=== PATIENT | female | born 1995 | race Caucasian/White ===

== ENCOUNTER 2016-07-09 10:45 | Emergency (ER) | payer OTHER, MEDICAID ==
[~2016-07-09] VITALS: Ht 170.2 cm; Wt 89.0 kg
[~2016-07-09 10:45] MED LIST: LORTA5 PO; ZOFR4TAB3 SL
[2016-07-09 10:52] VITALS: BP 142/96; PULSE 126; RESP 20; TEMP 98; O2SAT 98
[2016-07-09 13:20] VITALS: BP 151/92; PULSE 73; RESP 18; O2SAT 97
[2016-07-09] MEDS ORDERED: KETOROLAC TROMETHAMINE 30 MG/ML (IVP) VIAL IV PUSH ONE (14:00)
[2016-07-09] MEDS ORDERED: CYCLOBENZAPRINE HCL 10 MG TAB PO ONE (14:00)
[2016-07-09] MEDS ORDERED: KETOROLAC TROMETHAMINE 60 MG/2 ML (IM) VIAL IM ONE (14:15)
[2016-07-09 14:28] VITALS: BP 132/74; PULSE 83; RESP 16; O2SAT 99
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
[2016-07-09 15:25] VITALS: BP 155/83; PULSE 76; RESP 22; O2SAT 100
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
[2016-07-09] MEDS ORDERED: oxyCODONE/ACETAMINOPHEN 5 MG/325 MG TAB PO ONE (15:45)
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
[2016-07-09] MEDS ORDERED: CYCL1TAB29 PO (17:45)
[2016-07-09] MEDS ORDERED: IBUP-232 PO (17:45)
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
[2016-07-09 17:57] VITALS: BP 119/76
== END 2016-07-09 17:58 | disposition home or self-care (01) ==
LOC: NEPB 10:45 → NEPA 17:58
DX: R51 Headache (principal); M25.512 Pain in left shoulder; M54.2 Cervicalgia; M25.562 Pain in left knee; V89.2XXA Person injured in unspecified motor-vehicle accident, traffic, initial encounter
CPT/HCPCS: 70450; 71020; 72072; 72110; 72125; 73030; 73080; 73564; 84703; 96372; 99284; J1885; L0150

== ENCOUNTER 2017-06-19 20:41 | Emergency (ER) | payer OTHER ==
[~2017-06-19 20:41] MED LIST changes: +CYCL10TA PO; +IBUP-232 PO; -LORTA5 PO; -ZOFR4TAB3 SL
[2017-06-19 20:42] VITALS: BP 125/72; PULSE 111; RESP 16; TEMP 99.8; O2SAT 98
[2017-06-19] MEDS ORDERED: IBUPROFEN 800 MG TAB PO ONE (21:00)
--- NOTE | 2017-06-19 22:02 | PD ---
HPI Chief Complaint: Cold / Flu Symptoms Time Seen by Provider: 21:49 Travel History International Travel<30 days: No Contact w/Intl Traveler<30days: No Traveled to known affect area: No History of Present Illness HPI 22-year-old female presents to the emergency department for evaluation of sore throat, body aches, subjective fever and chills. This began yesterday. Symptoms are moderate in severity and constant. Patient has also had some nausea and about a diarrhea. Denies any abdominal pain. Has had chest pain or tightness. No difficulty breathing. Patient asked other symptoms to report. [facility] Past Medical History Medical History: Denies Significant Hx Immunizations Current: Yes ?: Not LMP: now Social History Alcohol Use: No Tobacco Use: No Substance Use: No Allergies-Medications (Allergen,Severity, Reaction): Coded Allergies: morphine (Unverified Allergy, Severe, Rash, 01/01/17) ipratropium (Unverified Allergy, Unknown, 01/01/17) milk (Unverified Allergy, Unknown, 01/01/17) Uncoded Allergies: FISH (Allergy, Unknown, 02/23/14) Reported Meds & Prescriptions Reported Meds & Active Scripts Active Amoxicillin 875 Mg Tab 875 Mg PO BID 10 Days Flexeril (Cyclobenzaprine HCl) 10 Mg Tab 10 Mg PO TID Ibuprofen 600 Mg Tab 600 Mg PO Q6H PRN Review of Systems Except as stated in HPI: all other systems reviewed are Neg Physical Exam Narrative GENERAL: Well-nourished female patient in no acute distress SKIN: Focused skin assessment warm/dry. HEAD: Atraumatic. Normocephalic. EYES: Pupils equal and round. No scleral icterus. No injection or drainage. ENT: No nasal bleeding or discharge. Mucous membranes pink and moist. Pharynx mildly edematous with significant erythema. Few scattered exudate. NECK: Trachea midline. No JVD. Anterior cervical lymphadenopathy. CARDIOVASCULAR: Elevated rate and rhythm. No murmur appreciated. RESPIRATORY: No accessory muscle use. Clear to auscultation. Breath sounds equal bilaterally. GASTROINTESTINAL: Abdomen soft, non-tender, nondistended. Hepatic and splenic margins not palpable. MUSCULOSKELETAL: No obvious deformities. No clubbing. No cyanosis. No edema. NEUROLOGICAL: Awake and alert. No obvious cranial nerve deficits. Motor grossly within normal limits. Normal speech. PSYCHIATRIC: Appropriate mood and affect; insight and judgment normal. Data Data Last Documented VS Vital Signs Date Time Temp Pulse Resp B/P (MAP) Pulse Ox O2 Delivery O2 Flow Rate FiO2 06/19/17 22:50 99.0 06/19/17 20:42 111 16 98 Orders Orders Group A Rapid Strep Screen (06/19/17 20:52) Influenzae A/B Antigen (06/19/17 20:52) Ibuprofen (Motrin) (06/19/17 21:00) Dexamethasone Inj (Decadron Inj) (06/19/17 22:15) Ed Discharge Order (06/19/17 22:11) MDM Medical Decision Making Medical Screen Exam Complete: Yes Emergency Medical Condition: Yes Medical Record Reviewed: Yes Differential Diagnosis Pharyngitis viral versus strep versus tonsillitis versus common cold versus allergies Narrative Course 22-year-old female presents emergency department for evaluation of flulike symptoms. Influenza screen is negative. Rapid strep screen is positive. Patient be started on amoxicillin. She is given IM Decadron here to help with inflammation and pain. She is counseled on care and agrees to return immediately with any acute worsening symptoms. Diagnosis Primary Impression: Strep pharyngitis Referrals: Primary Care Physician Patient Instructions: General Instructions, Strep Throat (ED) Departure Forms: Tests/Procedures, Work Release Enter return to work date: Jun 21, 2017 Additional Instructions: Warm salt water gargles may help to alleviate symptoms Follow-up with your primary care provider Tylenol or ibuprofen as directed on package as needed for fever and/or pain Return immediately with any acute worsening symptoms Med/Other Pt SpecificInfo: Prescription(s) given Scripts Amoxicillin (Amoxicillin) 875 Mg Tab 875 MG PO BID for Infection for 10 Days, #20 TAB 0 Refills Prov: Odessa Fuentes 06/19/17 Disposition: 01 DISCHARGE HOME Condition: Stable Odessa Fuentes Jun 19, 2017 22:02
[2017-06-19] MEDS ORDERED: AMOX875T PO (22:14)
[2017-06-19] MEDS ORDERED: DEXAMETHASONE SOD PHOS 4 MG/ML VIAL IM ONE (22:15)
[2017-06-19 22:50] VITALS: TEMP 99
== END 2017-06-19 22:58 | disposition home or self-care (01) ==
LOC: NEPD 20:41
DX: J02.0 Streptococcal pharyngitis (principal)
CPT/HCPCS: 87804; 87880; 96372; 99284; J1100

== ENCOUNTER 2017-08-16 16:04 | Emergency (ER) | payer SELFPAY ==
[~2017-08-16] VITALS: Ht 170.2 cm; Wt 75.0 kg
[~2017-08-16 16:04] MED LIST changes: +AMOX875T PO
[2017-08-16 16:14] VITALS: BP 160/73; PULSE 98; RESP 18; O2SAT 99
[2017-08-16] MEDS ORDERED: SODIUM CHLOR 0.9% 1000 ML INJ 1,000 ML IV SCH (17:16)
--- NOTE | 2017-08-16 17:29 | PD ---
HPI Chief Complaint: GI Complaint Time Seen by Provider: 17:08 Travel History International Travel<30 days: No Contact w/Intl Traveler<30days: No Traveled to known affect area: No History of Present Illness HPI Patient is a 22-year-old female who presents to emergency room with complaints of abdominal pain. Patient reports that she has been having intermittent abdominal pain which has been ongoing for the past month. Patient reports that for the past 3 days, she has been having persistent epigastric to right upper quadrant abdominal pain. Patient reports that pain has been mild to moderate in nature. Patient reports that pain has been associated with nausea and vomiting as well as diarrhea. Patient denies any sick contacts, denies any recent travels or trips. Patient reports subjective fevers today which prompted her to go to the emergency room. Patient reports that for the past month, pain would come on by itself and would be relieved by eating a meal, reports that for the past 3 days, nothing makes pain better or worse. Denies hx of surgeries in the past. Denies dysuria, urinary urgency or frequency. Denies flank pain. Denies vaginal discharge. PFSH Past Medical History Immunizations Current: Yes ?: Not LMP: 08/02/17 Past Surgical History Surgical History: No Previous Surgery Family History Family History: Negative Social History Alcohol Use: No Tobacco Use: No Substance Use: No Allergies-Medications (Allergen,Severity, Reaction): Coded Allergies: morphine (Unverified Allergy, Severe, Rash, 08/16/17) ipratropium (Unverified Allergy, Unknown, 08/16/17) milk (Unverified Allergy, Unknown, 08/16/17) Uncoded Allergies: FISH (Allergy, Unknown, 02/23/14) Reported Meds & Prescriptions Reported Meds & Active Scripts Active Zofran (Ondansetron HCl) 4 Mg Tab 4 Mg PO Q6HR PRN Pepcid (Famotidine) 20 Mg Tab 20 Mg PO BID Carafate Liq (Sucralfate) 1 Gm/10 Ml Susp 1 Gm PO TID on empty stomach Review of Systems General / Constitutional: No: Fever, Chills Eyes: No: Visual changes HENT: No: Headaches Cardiovascular: No: Chest Pain or Discomfort Respiratory: No: Shortness of Breath Gastrointestinal: Positive: Nausea, Vomiting, Diarrhea, Abdominal Pain, Loss of Appetite, No: Constipation Genitourinary: No: Urgency, Frequency, Dysuria Musculoskeletal: No: Pain Skin: No Rash Neurologic: No: Weakness Psychiatric: No: Depression Endocrine: No: Polydipsia Hematologic/Lymphatic: No: Easy Bruising Physical Exam Narrative GENERAL: Mild distress SKIN: Focused skin assessment warm/dry. HEAD: Atraumatic. Normocephalic. EYES: Pupils equal and round. No scleral icterus. No injection or drainage. ENT: No nasal bleeding or discharge. Mucous membranes pink and moist. NECK: Trachea midline. No JVD. CARDIOVASCULAR: Regular rate and rhythm. No murmur appreciated. RESPIRATORY: No accessory muscle use. Clear to auscultation. Breath sounds equal bilaterally. GASTROINTESTINAL: Abdomen soft, mildly tender to epigastrium with no rebound or guarding, nondistended. Hepatic and splenic margins not palpable. Patient with right sided CVA tenderness MUSCULOSKELETAL: No obvious deformities. No clubbing. No cyanosis. No edema. NEUROLOGICAL: Awake and alert. No obvious cranial nerve deficits. Motor grossly within normal limits. Normal speech. PSYCHIATRIC: Appropriate mood and affect; insight and judgment normal. Data Data Last Documented VS Vital Signs Date Time Temp Pulse Resp B/P (MAP) Pulse Ox O2 Delivery O2 Flow Rate FiO2 08/16/17 18:38 98.4 08/16/17 16:14 98 18 160/73 (102) 99 Orders Orders Complete Blood Count With Diff (08/16/17 17:16) Comprehensive Metabolic Panel (08/16/17 17:16) Lipase (08/16/17 17:16) Urinalysis - C+S If Indicated (08/16/17 17:16) Ct Abd/Pel W/O Iv Contrast (08/16/17 17:16) Iv Access Insert/Monitor (08/16/17 17:16) Ecg Monitoring (08/16/17 17:16) Oximetry (08/16/17 17:16) NPO (08/16/17 17:16) Ondansetron Inj (Zofran Inj) (08/16/17 17:30) Sodium Chlor 0.9% 1000 Ml Inj (Ns 1000 M (08/16/17 17:16) Sodium Chloride 0.9% Flush (Ns Flush) (08/16/17 17:30) Famotidine Inj (Pepcid Inj) (08/16/17 17:30) Ed Urine Pregnancytest Poc (08/16/17 17:16) Al-Mag Hy-Si 40-40-4 Mg/Ml Liq (Mag-Al P (08/16/17 17:30) Lidocaine 2% Viscous (Xylocaine 2% Visco (08/16/17 17:30) Sucralfate Liq (Carafate Liq) (08/16/17 20:45) Ketorolac Inj (Toradol Inj) (08/16/17 20:45) Ed Discharge Order (08/16/17 21:39) Labs Laboratory Tests Test 08/16/17 17:30 08/16/17 18:05 White Blood Count 9.7 TH/MM3 Red Blood Count 4.47 MIL/MM3 Hemoglobin 13.4 GM/DL Hematocrit 39.9 % Mean Corpuscular Volume 89.2 FL Mean Corpuscular Hemoglobin 30.0 PG Mean Corpuscular Hemoglobin Concent 33.6 % Red Cell Distribution Width 14.2 % Platelet Count 223 TH/MM3 Mean Platelet Volume 9.1 FL Neutrophils (%) (Auto) 76.3 % Lymphocytes (%) (Auto) 15.9 % Monocytes (%) (Auto) 6.9 % Eosinophils (%) (Auto) 0.6 % Basophils (%) (Auto) 0.3 % Neutrophils # (Auto) 7.4 TH/MM3 Lymphocytes # (Auto) 1.5 TH/MM3 Monocytes # (Auto) 0.7 TH/MM3 Eosinophils # (Auto) 0.1 TH/MM3 Basophils # (Auto) 0.0 TH/MM3 CBC Comment DIFF FINAL Differential Comment Blood Urea Nitrogen 8 MG/DL Creatinine 0.90 MG/DL Random Glucose 89 MG/DL Total Protein 7.4 GM/DL Albumin 3.9 GM/DL Calcium Level 8.9 MG/DL Alkaline Phosphatase 57 U/L Aspartate Amino Transf (AST/SGOT) 30 U/L Alanine Aminotransferase (ALT/SGPT) 64 U/L Total Bilirubin 0.3 MG/DL Sodium Level 141 MEQ/L Potassium Level 4.2 MEQ/L Chloride Level 110 MEQ/L Carbon Dioxide Level 27.1 MEQ/L Anion Gap 4 MEQ/L Estimat Glomerular Filtration Rate 78 ML/MIN Lipase 122 U/L Urine Color LIGHT-YELLOW Urine Turbidity CLEAR Urine pH 6.0 Urine Specific [place] 1.009 Urine Protein NEG mg/dL Urine Glucose (UA) NEG mg/dL Urine Ketones NEG mg/dL Urine Occult Blood NEG Urine Nitrite NEG Urine Bilirubin NEG Urine Urobilinogen LESS THAN 2.0 MG/DL Urine Leukocyte Esterase NEG Urine RBC 1 /hpf Urine WBC LESS THAN 1 /hpf Urine Squamous Epithelial Cells 4 /hpf Microscopic Urinalysis Comment CULT NOT INDICATED MDM Medical Decision Making Medical Screen Exam Complete: Yes Emergency Medical Condition: Yes Medical Record Reviewed: Yes Interpretation(s) Vital Signs Date Time Temp Pulse Resp B/P (MAP) Pulse Ox O2 Delivery O2 Flow Rate FiO2 08/16/17 16:14 98 18 160/73 (102) 99 Differential Diagnosis Gastritis, gastroenteritis, gastric ulcer, GERD, cholecystitis, viral syndrome, UTI, kidney stones Narrative Course Patient is a 22-year-old female who presents to emergency room with complaints of abdominal pain which has been ongoing for the past month. Initially symptoms were intermittent in nature, patient reports her symptoms have been persistent for the past 3 days. Patient reports increased pain to her epigastrium, reports nausea, vomiting and diarrhea with symptoms. Patient reports that symptoms have been persistent for the past 3 days with associated subjective fevers today. On exam, patient is tender to epigastrium, discussed her plan to obtain lab work , will administer IV fluids as well as antiemetics and GI cocktail. CT of the abdomen pelvis without contrast was ordered as she does have associated right- sided flank pain. Vital Signs Date Time Temp Pulse Resp B/P (MAP) Pulse Ox O2 Delivery O2 Flow Rate FiO2 08/16/17 18:38 98.4 08/16/17 16:14 98 18 160/73 (102) 99 CBC & BMP Diagram 08/16/17 17:30 Total Protein 7.4, Albumin 3.9, Calcium Level 8.9, Alkaline Phosphatase 57, Aspartate Amino Transf (AST/SGOT) 30, Alanine Aminotransferase (ALT/SGPT) 64 H, Total Bilirubin 0.3 Last Impressions Abdomen/Pelvis CT 08/16/17 [id number] Signed Impressions: Service Date/Time: Wednesday, August 16, 2017 19:15 - CONCLUSION: No acute disease. Vishal Canas MD Patient re-evaluated, patient feeling much better at this time. All labs and studies reviewed with patient. She will return to ER as needed. Signs and symptoms of when to return to the ER was reviewed with patient Diagnosis Primary Impression: Abdominal pain Qualified Codes: R10.13 - Epigastric pain Additional Impressions: GERD (gastroesophageal reflux disease) Qualified Codes: K21.9 - Gastro-esophageal reflux disease without esophagitis Gastroenteritis Patient Instructions: General Instructions, Narcotic given in the ED Additional Instructions: Please provide patient with a copy of their lab work and studies at discharge* * Please follow up with your primary care doctor in 2-3 days Return to the ER if symptoms worsen or progress Return to the ER as needed Please follow-up with a sales representative jewelry Med/Other Pt SpecificInfo: Prescription(s) given Scripts Ondansetron (Zofran) 4 Mg Tab 4 MG PO Q6HR Y for NAUSEA OR VOMITING, #12 TAB 0 Refills Prov: Kira Davalos DO 08/16/17 Famotidine (Pepcid) 20 Mg Tab 20 MG PO BID, #60 TAB 0 Refills Prov: Kira Davalos DO 08/16/17 Sucralfate Liq (Carafate Liq) 1 Gm/10 Ml Susp 1 GM PO TID for Duodenal ulcer, #900 ML 0 Refills on empty stomach Prov: Kira Davalos DO 08/16/17 Disposition: 01 DISCHARGE HOME Condition: Stable Kira Davalos DO Aug 16, 2017 17:29
[2017-08-16] MEDS ORDERED: ALUMINUM/MAGNESIUM/SIMETH 30 ML CUP PO ONE (17:30)
[2017-08-16] MEDS ORDERED: ONDANSETRON HCL 4 MG/2 ML VIAL IVP ONE (17:30)
[2017-08-16] MEDS ORDERED: SODIUM CHLORIDE 0.9% FLUSH 10 ML FLUSH IV FLUSH PRN (17:30)
[2017-08-16] MEDS ORDERED: LIDOCAINE VISCOUS 2% SOLN 15 ML UDC PO ONE (17:30)
[2017-08-16] MEDS ORDERED: FAMOTIDINE 20 MG/2 ML VIAL IV PUSH ONE (17:30)
[2017-08-16 17:50] LABS: AUTOMATED NEUTROPHIL # 7.4 TH/MM3 (1.8-7.7); BASOPHIL % 0.3 % (0.0-2.0); EOSINOPHIL # 0.1 TH/MM3 (0-0.4); EOSINOPHIL % 0.6 % (0.0-4.0); HEMATOCRIT 39.9 % (35.0-46.0); HEMOGLOBIN 13.4 GM/DL (11.6-15.3); LYMPH % 15.9 % (9.0-44.0); LYMPHOCYTE # 1.5 TH/MM3 (1.0-4.8); MEAN CELL VOLUME 89.2 FL (80.0-100.0); MEAN CORPUSCULAR HGB CONC 33.6 % (32.0-36.0); MEAN PLATELET VOLUME 9.1 FL (7.0-11.0); MONO % 6.9 % (0.0-8.0); MONOCYTE # 0.7 TH/MM3 (0-0.9); NEUT % 76.3 % (16.0-70.0); PLATELET COUNT 223 TH/MM3 (150-450); RED BLOOD COUNT 4.47 MIL/MM3 (4.00-5.30); RED CELL DISTRIBUTION WIDTH 14.2 % (11.6-17.2); WHITE BLOOD COUNT 9.7 TH/MM3 (4.0-11.0)
[2017-08-16 18:02] LABS: ALBUMIN 3.9 GM/DL (3.4-5.0); ALT (GPT) 64 U/L (10-53); AST (GOT) 30 U/L (15-37); BICARBONATE 27.1 MEQ/L (21.0-32.0); BLOOD UREA NITROGEN 8 MG/DL (7-18); CALCIUM 8.9 MG/DL (8.5-10.1); CHLORIDE 110 MEQ/L (98-107); GLOMERULAR FILTRATION RATE 78 ML/MIN (>89); GLUCOSE,RANDOM 89 MG/DL (74-106); SODIUM (NA) 141 MEQ/L (136-145)
[2017-08-16 18:04] LABS: ALKALINE PHOSPHATASE 57 U/L (45-117); TOTAL BILIRUBIN ADULT 0.3 MG/DL (0.2-1.0); TOTAL PROTEIN 7.4 GM/DL (6.4-8.2)
[2017-08-16 18:38] VITALS: TEMP 98.4
[2017-08-16 18:50] LABS: BILIRUBIN, URINE NEG (NEG); BLOOD, URINE NEG (NEG); GLUCOSE,URINE NEG (NEG); KETONE, URINE NEG (NEG); NITRITE,URINE NEG (NEG); SQUAMOUS EPITHELIAL CELL URINE 4 /hpf (0-5); URINE COLOR LIGHT-YELLOW (YELLW/STRAW); URINE LEUKOCYTE ESTERASE NEG (NEG)
--- NOTE | 2017-08-16 20:15 | RADRPT ---
EXAM DATE/TIME: 08/16/2017 19:15 [facility] COMPARISON: No previous studies available for comparison. INDICATIONS : Mid abdominal pain with nausea and vomiting. ORAL CONTRAST: No oral contrast ingested. RADIATION DOSE: 11.87 CTDIvol (mGy) MEDICAL HISTORY : None SURGICAL HISTORY : None. ENCOUNTER: Initial ACUITY: 1 day PAIN SCALE: 5/10 LOCATION: middle abdomen. TECHNIQUE: Volumetric scanning of the abdomen and pelvis was performed. Using automated exposure control and ad justment of the mA and/or kV according to patient size, radiation dose was kept as low as reasonably achievable to obtain optimal diagnostic quality images. DICOM format image data is available electro nically for review and comparison. FINDINGS: LOWER LUNGS: The visualized lower lungs are clear. LIVER: Homogeneous density without lesion. There is no dilation of the biliary tree. No calcified gallston es. SPLEEN: Normal size without lesion. PANCREAS: Within normal limits. KIDNEYS: Normal in size and shape. There is no mass, stone, or hydronephrosis. ADRENAL GLANDS: Within normal limits. VASCULAR: There is no aortic aneurysm. BOWEL/MESENTERY: The stomach, small bowel, and colon demonstrate no acute abnormality. There is no free intraperitone al air or fluid. The appendix is normal. ABDOMINAL WALL: Within normal limits. RETROPERITONEUM: There is no lymphadenopathy. BLADDER: No wall thickening or mass. Small calcifications are seen in the pelvis likely related to phleboliths . REPRODUCTIVE: Within normal limits. INGUINAL: There is no lymphadenopathy or hernia. MUSCULOSKELETAL: Within normal limits for patient age. There are normal transitional changes of the left L5-S1 level. CONCLUSION: No acute disease. Vishal Canas MD on August 16, 2017 at 20:11 Board Certified Radiologist. This report was verified electronically.
[2017-08-16] MEDS ORDERED: CARA1SUS3 PO (20:44)
[2017-08-16] MEDS ORDERED: FAMO1TAB37 PO (20:44)
[2017-08-16] MEDS ORDERED: ZOFR4TAB PO (20:44)
[2017-08-16] MEDS ORDERED: SUCRALFATE 1 GM/10 ML CUP PO ONE (20:45)
[2017-08-16] MEDS ORDERED: KETOROLAC TROMETHAMINE 30 MG/ML (IVP) VIAL IV PUSH ONE (20:45)
== END 2017-08-16 21:40 | disposition home or self-care (01) ==
LOC: NEPD 16:04
DX: K21.9 Gastro-esophageal reflux disease without esophagitis (principal); K52.9 Noninfective gastroenteritis and colitis, unspecified
CPT/HCPCS: 74176; 80053; 81001; 83690; 84703; 85025; 96361; 96374; 96375; 99284; J1885; J2405; J7030

== ENCOUNTER 2017-10-10 09:11 | Emergency (ER) | payer SELFPAY ==
[~2017-10-10] VITALS: Ht 170.2 cm; Wt 75.0 kg
[~2017-10-10 09:11] MED LIST changes: -AMOX875T PO; +CARA1SUS3 PO; -CYCL10TA PO; +FAMO1TAB37 PO; -IBUP-232 PO; +ZOFR4TAB PO
[2017-10-10 09:16] VITALS: BP 129/69; PULSE 74; RESP 16; TEMP 98.6; O2SAT 98
[2017-10-10] MEDS ORDERED: SODIUM CHLOR 0.9% 1000 ML INJ 1,000 ML IV SCH (10:16)
[2017-10-10] MEDS ORDERED: ONDANSETRON ODT 4 MG TAB PO ONE (10:30)
[2017-10-10] MEDS ORDERED: SODIUM CHLORIDE 0.9% FLUSH 10 ML FLUSH IV FLUSH PRN (10:30)
[2017-10-10 10:35] LABS: BILIRUBIN, URINE NEG (NEG); BLOOD, URINE LARGE (NEG); GLUCOSE,URINE NEG (NEG); KETONE, URINE NEG (NEG); NITRITE,URINE NEG (NEG); PH, URINE 5.5 (5.0-8.5); URINE COLOR YELLOW (YELLW/STRAW); URINE LEUKOCYTE ESTERASE NEG (NEG)
[2017-10-10 10:36] LABS: AUTOMATED NEUTROPHIL # 5.1 TH/MM3 (1.8-7.7); BASOPHIL % 0.2 % (0.0-2.0); EOSINOPHIL % 0.4 % (0.0-4.0); HEMATOCRIT 40.9 % (35.0-46.0); HEMOGLOBIN 13.8 GM/DL (11.6-15.3); LYMPH % 13.5 % (9.0-44.0); LYMPHOCYTE # 0.9 TH/MM3 (1.0-4.8); MEAN CELL VOLUME 87.3 FL (80.0-100.0); MEAN CORPUSCULAR HEMOGLOBIN 29.5 PG (27.0-34.0); MEAN CORPUSCULAR HGB CONC 33.8 % (32.0-36.0); MEAN PLATELET VOLUME 9.8 FL (7.0-11.0); MONO % 6.6 % (0.0-8.0); MONOCYTE # 0.4 TH/MM3 (0-0.9); NEUT % 79.3 % (16.0-70.0); PLATELET COUNT 200 TH/MM3 (150-450); RED BLOOD COUNT 4.68 MIL/MM3 (4.00-5.30); RED CELL DISTRIBUTION WIDTH 12.8 % (11.6-17.2); WHITE BLOOD COUNT 6.4 TH/MM3 (4.0-11.0)
[2017-10-10 10:39] LABS: RBC, URINE 15-19 /hpf (0-3); WBC, URINE 0-2 /hpf (0-5)
[2017-10-10 10:40] LABS: BACTERIA, URINE OCC /hpf; SQUAMOUS EPITHELIAL CELL URINE > 8 /hpf (0-5)
[2017-10-10 10:44] VITALS: BP 130/74; PULSE 68; RESP 18; O2SAT 100
[2017-10-10 10:46] LABS: CHLORIDE 106 MEQ/L (98-107); SODIUM (NA) 138 MEQ/L (136-145)
[2017-10-10 10:49] LABS: ALBUMIN 4.1 GM/DL (3.4-5.0); BICARBONATE 27.1 MEQ/L (21.0-32.0); BLOOD UREA NITROGEN 7 MG/DL (7-18); CALCIUM 9.1 MG/DL (8.5-10.1); GLUCOSE,RANDOM 89 MG/DL (74-106)
[2017-10-10 10:52] LABS: ALT (GPT) 14 U/L (10-53)
[2017-10-10 10:53] LABS: AST (GOT) 12 U/L (15-37); CREATININE 0.84 MG/DL (0.50-1.00); GLOMERULAR FILTRATION RATE 85 ML/MIN (>89)
[2017-10-10 10:54] LABS: TOTAL BILIRUBIN ADULT 0.4 MG/DL (0.2-1.0); TOTAL PROTEIN 7.8 GM/DL (6.4-8.2)
[2017-10-10 10:55] LABS: ALKALINE PHOSPHATASE 49 U/L (45-117)
[2017-10-10 11:19] VITALS: BP 122/69; PULSE 76; RESP 18; O2SAT 98
--- NOTE | 2017-10-10 11:33 | RADRPT ---
EXAM DATE: 10/10/2017 11:31 AM EDT AGE/SEX: 22 years / Female INDICATIONS: Cough and sore throat. CLINICAL DATA: This is the patient's initial encounter. Patient reports that signs and symptoms have been present for 2 days and indicates a pain score of 0/10. MEDICAL/SURGICAL HISTORY: None. None. COMPARISON: [facility] [place], CHEST PA & LAT, 07/09/2016. . FINDINGS: PA and lateral views of the chest demonstrate the lungs to be symmetrically aerated without evidence of mass, infiltrate or effusion. The cardiomediastinal contours are unremarkable. Osseous structures are intact. CONCLUSION: 1. No acute cardiopulmonary disease. Electronically signed by: Imer Knight MD 10/10/2017 11:32 AM EDT
[2017-10-10] MEDS ORDERED: KETOROLAC TROMETHAMINE 30 MG/ML (IVP) VIAL IV PUSH ONE (12:00)
[2017-10-10 12:05] VITALS: BP 139/76; PULSE 75; RESP 18; O2SAT 100
[2017-10-10] MEDS ORDERED: ZOFR4TAB3 SL (12:23)
--- NOTE | 2017-10-10 12:23 | PD ---
HPI Chief Complaint: GI Complaint Time Seen by Provider: 09:50 Travel History International Travel<30 days: No Contact w/Intl Traveler<30days: No Traveled to known affect area: No History of Present Illness HPI Patient is a 22 year old female who comes in complaining of nausea, vomiting, fever and throat pain. She says this started Saturday with a headache and the following day she started to have chills with the sore throat, vomiting, and diarrhea. She says she has had issues with vomiting in the past, but has not been able to follow up with gastroenterology. She says she had a fever of 101 last night. She took some Tylenol and she says this helps with the chills. She denies abdominal pain. She denies any sick contacts, but says she has been in and out of the hospital with her grandmother in the past few months. Severity is mild to moderate. PFSH Past Medical History Immunizations Current: Yes Influenza Vaccination: No ?: Not LMP: NOW Social History Alcohol Use: No Tobacco Use: Yes (2-3 CIGS PER DAY) Substance Use: No Allergies-Medications (Allergen,Severity, Reaction): Coded Allergies: morphine (Unverified Allergy, Severe, Rash, 08/16/17) ipratropium (Unverified Allergy, Unknown, 08/16/17) milk (Unverified Allergy, Unknown, 08/16/17) Uncoded Allergies: FISH (Allergy, Unknown, 02/23/14) Reported Meds & Prescriptions Reported Meds & Active Scripts Active Review of Systems Except as stated in HPI: all other systems reviewed are Neg General / Constitutional: No: Fever HENT: Positive: Sore Throat Cardiovascular: No: Chest Pain or Discomfort Respiratory: No: Shortness of Breath Gastrointestinal: Positive: Nausea, Vomiting, Diarrhea Genitourinary: No: Dysuria Musculoskeletal: No: Myalgias, Edema Skin: No Rash, No Change in Pigmentation Neurologic: No: Weakness, Dizziness Physical Exam Narrative GENERAL: Awake and alert, in no acute distress. SKIN: Focused skin assessment warm/dry. HEAD: Atraumatic. Normocephalic. EYES: Pupils equal and round. No scleral icterus. ENT: Enlarged, erythematous tonsils without exudates. Uvula is midline. Mucous membranes pink and moist. NECK: Trachea midline. No JVD. CARDIOVASCULAR: Regular rate and rhythm. No murmur appreciated. RESPIRATORY: No accessory muscle use. Clear to auscultation. Breath sounds equal bilaterally. GASTROINTESTINAL: Abdomen soft, non-tender, nondistended. MUSCULOSKELETAL: No obvious deformities. No clubbing. No cyanosis. No edema. NEUROLOGICAL: Awake and alert. No obvious cranial nerve deficits. Motor grossly within normal limits. Normal speech. PSYCHIATRIC: Appropriate mood and affect; insight and judgment normal. Data Data Last Documented VS Vital Signs Date Time Temp Pulse Resp B/P (MAP) Pulse Ox O2 Delivery O2 Flow Rate FiO2 10/10/17 12:05 75 18 139/76 (97) 100 Room Air 10/10/17 09:16 98.6 Orders Orders Complete Blood Count With Diff (10/10/17 10:16) Comprehensive Metabolic Panel (10/10/17 10:16) Urinalysis - C+S If Indicated (10/10/17 10:16) Iv Access Insert/Monitor (10/10/17 10:16) Ecg Monitoring (10/10/17 10:16) Oximetry (10/10/17 10:16) Sodium Chlor 0.9% 1000 Ml Inj (Ns 1000 M (10/10/17 10:16) Sodium Chloride 0.9% Flush (Ns Flush) (10/10/17 10:30) Ed Urine Pregnancytest Poc (10/10/17 10:16) Ondansetron Odt (Zofran Odt) (10/10/17 10:30) Group A Rapid Strep Screen (10/10/17 10:16) Strep Culture (Group A) (10/10/17 10:25) Chest, Pa & Lat (10/10/17 ) Ketorolac Inj (Toradol Inj) (10/10/17 12:00) Labs Laboratory Tests Test 10/10/17 10:25 White Blood Count 6.4 TH/MM3 Red Blood Count 4.68 MIL/MM3 Hemoglobin 13.8 GM/DL Hematocrit 40.9 % Mean Corpuscular Volume 87.3 FL Mean Corpuscular Hemoglobin 29.5 PG Mean Corpuscular Hemoglobin Concent 33.8 % Red Cell Distribution Width 12.8 % Platelet Count 200 TH/MM3 Mean Platelet Volume 9.8 FL Neutrophils (%) (Auto) 79.3 % Lymphocytes (%) (Auto) 13.5 % Monocytes (%) (Auto) 6.6 % Eosinophils (%) (Auto) 0.4 % Basophils (%) (Auto) 0.2 % Neutrophils # (Auto) 5.1 TH/MM3 Lymphocytes # (Auto) 0.9 TH/MM3 Monocytes # (Auto) 0.4 TH/MM3 Eosinophils # (Auto) 0.0 TH/MM3 Basophils # (Auto) 0.0 TH/MM3 CBC Comment DIFF FINAL Differential Comment Urine Collection Type CLEAN CATCH Urine Color YELLOW Urine Turbidity CLEAR Urine pH 5.5 Urine Specific [place] 1.015 Urine Protein NEG mg/dL Urine Glucose (UA) NEG mg/dL Urine Ketones NEG mg/dL Urine Occult Blood LARGE Urine Nitrite NEG Urine Bilirubin NEG Urine Urobilinogen 0.2 MG/DL Urine Leukocyte Esterase NEG Urine RBC 15-19 /hpf Urine WBC 0-2 /hpf Urine Squamous Epithelial Cells > 8 /hpf Urine Bacteria OCC /hpf Microscopic Urinalysis Comment CULT NOT INDICATED Urine Collection Time 10:25 Blood Urea Nitrogen 7 MG/DL Creatinine 0.84 MG/DL Random Glucose 89 MG/DL Total Protein 7.8 GM/DL Albumin 4.1 GM/DL Calcium Level 9.1 MG/DL Alkaline Phosphatase 49 U/L Aspartate Amino Transf (AST/SGOT) 12 U/L Alanine Aminotransferase (ALT/SGPT) 14 U/L Total Bilirubin 0.4 MG/DL Sodium Level 138 MEQ/L Potassium Level 3.6 MEQ/L Chloride Level 106 MEQ/L Carbon Dioxide Level 27.1 MEQ/L Anion Gap 5 MEQ/L Estimat Glomerular Filtration Rate 85 ML/MIN [facility] Medical Decision Making Medical Screen Exam Complete: Yes Emergency Medical Condition: Yes Medical Record Reviewed: Yes Differential Diagnosis Viral illness versus strep pharyngitis versus gastroenteritis Narrative Course Patient is a 22-year-old female who comes in complaining of sore throat with nausea, vomiting, diarrhea. Exam shows enlarged tonsils without exudates. IV established, labs sent. Labs show no acute abnormalities. Rapid strep test is negative. Patient given IV fluids, Zofran. Given a dose of Toradol. She reports some improvement of her symptoms. She is able to drink water without vomiting. She will be discharged with a prescription for Zofran. She is advised to follow-up with gastroenterology. Mandatory outpatient referral placed. Advised return anytime for any worsening symptoms. Diagnosis Primary Impression: Gastroenteritis Referrals: Trenton Mccallum MD call for appointment Patient Instructions: Acute Nausea and Vomiting (ED), General Instructions Additional Instructions: Follow up with gastroenterology. Eat a bland diet if you feel hungry. Drink plenty of fluids. Return to the ED as needed for any worsening symptoms. Scripts Ondansetron Odt (Zofran Odt) 4 Mg Tab 4 MG SL Q6HR Y for Nausea/Vomiting, #10 TAB 0 Refills Prov: Alida Dill MD 10/10/17 Disposition: 01 DISCHARGE HOME Condition: Stable Alida Dill MD October 10, 2017 12:23
== END 2017-10-10 12:48 | disposition home or self-care (01) ==
LOC: PHED 09:11
DX: K52.9 Noninfective gastroenteritis and colitis, unspecified (principal); J02.9 Acute pharyngitis, unspecified; R51 Headache; Z88.5 Allergy status to narcotic agent; Z72.0 Tobacco use
CPT/HCPCS: 71046; 80053; 81001; 84703; 85025; 87081; 87880; 96361; 96374; 99284; J1885; J7030